=== PATIENT | female | born 1945 | race Caucasian/White ===

== ENCOUNTER → 2023-01-30 10:22 | Outpatient (BNVA) | payer MEDICARE, OTHER, SELFPAY | PROVIDERS: Referring Provider Family Medicine; Visit Provider Internal Medicine | DX: E05.00 Thyrotoxicosis with diffuse goiter without thyrotoxic crisis or storm (principal); D84.89 Other immunodeficiencies; E06.3 Autoimmune thyroiditis | CPT/HCPCS: 36415; 84439; 84443; 84480; 99204 ==